=== PATIENT | male | born 1955 | race Caucasian/White ===

== ENCOUNTER 2021-12-10 10:41 | Day surgery (SDC) | payer OTHER, MEDICAID ==
[~2021-12-10] VITALS: Ht 177.8 cm; Wt 94.3 kg
[2021-12-10] MEDS ORDERED: MIDAZOLAM 2 MG/2 ML VIAL ONE (13:15)
[2021-12-10] MEDS ORDERED: fentaNYL citrate 0.05 MG/ML VIAL ONE (13:15)
[2021-12-10] MEDS ORDERED: fentaNYL citrate 0.05 MG/ML VIAL IVP ONE (13:55)
[2021-12-10] MEDS ORDERED: MIDAZOLAM 2 MG/2 ML VIAL IVP ONE (13:55)
[2021-12-10] MEDS ORDERED: BOTOX MC ONE (14:00)
[2021-12-10] MEDS ORDERED: BOTOX IV ONE (14:30)
== END 2021-12-10 14:21 | disposition home or self-care (01) ==
LOC: MOR 10:41 → MMU 10:51 → MOR 14:21
PROVIDERS: ATTEND Internal Medicine Gastroenterology
DX: R13.10 Dysphagia, unspecified (principal); K22.2 Esophageal obstruction; I10 Essential (primary) hypertension; Z79.82 Long term (current) use of aspirin; Z79.899 Other long term (current) drug therapy; Z20.822 Contact with and (suspected) exposure to COVID-19
CPT/HCPCS: 43236; 43239; 87426; 88305; J2250; J3010